=== PATIENT | female | born 1995 | race Caucasian/White ===

== ENCOUNTER 2020-02-15 13:13 | Emergency (ER) | payer OTHER, SELFPAY ==
[2020-02-15 13:29] VITALS: BP 132/85; PULSE 72; RESP 16; TEMP 37.3; O2SAT 100
--- NOTE | 2020-02-15 14:01 | ED.EAR ---
HPI - Ear Problem General Chief complaint: Ear Stated complaint: ear infection?? Time Seen by Provider: 02/15/20 13:16 Source: patient Mode of arrival: ambulatory Limitations: no limitations History of Present Illness HPI Narrative: Patient is a 24-year-old female who presents with several days duration of right ear pain with congestion rhinorrhea nonproductive cough. Patient also notes her daughter has a cold. Patient denies fever vomiting diarrhea. Patient denies chest pain or dyspnea. Patient on arrival resting comfortably in the room in no distress. Related Data Allergies Allergy/AdvReac Type Severity Reaction Status Date / Time No Known Allergies Allergy Verified 02/15/20 13:32 Review of Systems Review of Systems: All systems reviewed & are unremarkable except as noted in HPI and below PMFSH Social History Social History (Updated 02/15/20 @ 14:02 by Avni Knight PA-C) Smoking status: Current every day smoker Gender identity (if verbalized by the patient): Female Exam Narrative: Exam Narrative: GENERAL: Well-appearing, well-nourished, and in no acute distress. HEAD: Normocephalic, atraumatic. EYES: PERRLA and EOMI. ENT: Nares clear, no rhinorrhea or epistaxis. Mucous membranes moist. Oropharynx without tonsillar hypertrophy exudate or other lesions. Bilateral TMs slightly erythematous with fluid levels NECK: Supple. No adenopathy or masses. CHEST: Clear to auscultation. No respiratory distress. No wheezes rales or rhonchi HEART: Regular rate and rhythm. No murmur heard. EXTREMITIES: Normal range of motion. No edema. SKIN: Warm, dry, no rash. NEURO: No focal deficits. Alert and oriented x3. PSYCH: Normal mood and affect. Course Course Emergency Course: Patient in the room aware of case findings treatment plan and diagnosis agreeing to follow-up as directed with primary care nontoxic-appearing no distress felt appropriate for outpatient reevaluation Vital Signs Vital signs: Vital Signs Temperature 99.1 F 02/15/20 13:29 Pulse Rate 72 02/15/20 13:29 Respiratory Rate 16 02/15/20 13:29 Blood Pressure 132/85 02/15/20 13:29 Pulse Oximetry 100 02/15/20 13:29 Temperature 99.1 F 02/15/20 13:29 Pulse Rate 72 02/15/20 13:29 Respiratory Rate 16 02/15/20 13:29 Blood Pressure 132/85 02/15/20 13:29 Pulse Oximetry 100 02/15/20 13:29 Medical Decision Making MDM Narrative Medical decision making narrative: Patient with upper respiratory infection afebrile nontoxic-appearing no distress felt appropriate for outpatient reevaluation. Patient agreeing to follow-up as directed and will return if symptoms worsen Vital Signs Vital Signs: Vital Signs Temperature 99.1 F 02/15/20 13:29 Pulse Rate 72 02/15/20 13:29 Respiratory Rate 16 02/15/20 13:29 Blood Pressure 132/85 02/15/20 13:29 Pulse Oximetry 100 02/15/20 13:29 Temperature 99.1 F 02/15/20 13:29 Pulse Rate 72 02/15/20 13:29 Respiratory Rate 16 02/15/20 13:29 Blood Pressure 132/85 02/15/20 13:29 Pulse Oximetry 100 02/15/20 13:29 Discharge Plan Discharge Clinical Impression: Acute upper respiratory infection Patient Disposition: Home, Self-Care Condition: Stable Instructions: Antibiotic Form, Upper Respiratory Infection (DC) Additional Instructions: Follow up with your primary care provider within 1-2 days to set up for reevaluation. Go to ER for shortness of breath, difficulty breathing, chest pain, fever/chills, weakness, nauseau/vomitting, etc. or any other concerns. Stay well-hydrated Take any prescribed medications as directed. Follow patient education sheets If you do not have a drug allergy to tylenol or motrin and can tolerate it then take tylenol or motrin as needed for discomfort/pain. Prescriptions: New amoxicillin 500 mg tablet 500 mg PO Q12H 10 Days Qty: 20 RF: 0 loratadine [Claritin] 10 mg tablet 10 mg PO DAILY PRN (Reason: allergy
== END 2020-02-15 14:30 | disposition home or self-care (01) ==
LOC: ANHED 14:58
PROVIDERS: Emergency Provider Emergency Medicine
DX: J06.9 Acute upper respiratory infection, unspecified (principal); F17.200 Nicotine dependence, unspecified, uncomplicated
CPT/HCPCS: 99283

== ENCOUNTER 2020-06-12 14:32 | Emergency (ER) | payer OTHER, SELFPAY ==
[2020-06-12 15:11] VITALS: BP 135/71; PULSE 82; RESP 16; TEMP 36.7; O2SAT 99
[2020-06-12 15:37] LABS: Add Urine Microscopic? YES; Amorphous Sediment Urine Few; Appearance Urine Clear (Clear); Bilirubin Urine Negative (Negative); Blood Urine Negative (Negative); Color Urine Yellow (Yellow); Glucose Urine UA Negative (Negative); Ketones Urine Negative (Negative); Leukocyte Esterase Ur Negative LEU/UL (Negative); Mucus Urine Moderate /lpf; Nitrate Urine Negative (Negative); Protein Urine 1+ mg/dL (Negative); RBC Urine 0-2 /hpf (0-2); Squamous Epithelial Cell Urine Many /hpf (Few); Urobilinogen Urine Negative mg/dL (<2.0)
[2020-06-12 15:38] LABS: Specific Grav Ur 1.032 (1.001-1.035)
--- NOTE | 2020-06-12 15:48 | ED.FEMALEGU ---
HPI - Female Genitourinary General Chief complaint: Urogenital-Female Stated complaint: I have an STD or a UTI Time Seen by Provider: 06/12/20 15:19 Source: patient Mode of arrival: ambulatory Limitations: no limitations History of Present Illness HPI Narrative: This is a 24 year old female that presents to the ER for dysuria x 2 days. Reports unprotected sex one week ago. Reports she has had dysuria and frequency. Was concerned about a possible STD. Denies fever, vomiting, flank pain, or hematuria. Related Data Home Medications Medication Instructions Recorded Confirmed No Home Medications 06/12/20 06/12/20 Allergies Allergy/AdvReac Type Severity Reaction Status Date / Time No Known Allergies Allergy Verified 06/12/20 15:15 Review of Systems Review of Systems: Narrative: CONSTITUTIONAL: Denies fever GASTROINTESTINAL: Denies abdominal pain, nausea, vomiting GENITOURINARY: Reports dysuria. Denies hematuria. All systems reviewed & are unremarkable except as noted in HPI and below [facility] Social History Social History (Updated 06/12/20 @ 15:51 by Amalia Cartwright PA-C) Smoking status: Former smoker Substance use: current Substance use type: marijuana Gender identity (if verbalized by the patient): Female Exam Narrative: Exam Narrative: GENERAL: Well-appearing, obese, and in no acute distress. HEAD: Normocephalic, atraumatic. EYES: EOMI. CHEST: Clear to auscultation. No respiratory distress. No wheezes rales or rhonchi HEART: Regular rate and rhythm. No murmur heard. Normal peripheral pulses. ABDOMEN: Soft, nontender, nondistended, normal active bowel sounds. No CVA tenderness EXTREMITIES: Normal range of motion. No edema. SKIN: Warm, dry, no rash. NEURO: No focal deficits. Alert and oriented x3. PSYCH: Normal mood and affect Course Vital Signs Vital signs: Vital Signs Temperature 98.1 F 06/12/20 15:11 Pulse Rate 82 06/12/20 15:11 Respiratory Rate 16 06/12/20 15:11 Blood Pressure 135/71 06/12/20 15:11 Pulse Oximetry 99 06/12/20 15:11 Temperature 98.1 F 06/12/20 15:11 Pulse Rate 82 06/12/20 15:11 Respiratory Rate 16 06/12/20 15:11 Blood Pressure 135/71 06/12/20 15:11 Pulse Oximetry 99 06/12/20 15:11 MDM - Female Genitourinary MDM Narrative Medical decision making narrative: Patient presents emergency department for possible STD. She is afebrile and nontoxic-appearing. UA with 4-6 white blood cells, but also many squamous epithelial cells. This will be sent for a culture. Bedside test is negative. Trichomonas was negative. Chlamydia and gonorrhea are pending. After evaluation patient eloped prior to receiving any further treatment Lab Data Attestation: I reviewed the patient's lab results. Labs: Lab Results 06/12/20 06/12/20 06/12/20 Range/Units 15:24 15:46 15:46 Urine Color Yellow (Yellow) Urine Appearance Clear (Clear) Urine pH 6.0 (5.0-9.0) Ur Specific [place] 1.032 (1.001-1.035) Urine Protein 1+ H (Negative) mg/dL Urine Glucose (UA) Negative (Negative) mg/dL Urine Ketones Negative (Negative) mg/dL Ur Blood (Man) Negative (Negative) Urine Nitrate Negative (Negative) Urine Bilirubin Negative (Negative) Urine Urobilinogen Negative (<2.0) mg/dL Leukocyte Esterase Rfl Negative (Negative) ARIS/UL Urine RBC 0-2 (0-2) /hpf Urine WBC 4-6 H /hpf Ur Squamous Epith Cells Many H (Few) /hpf Amorphous Sediment Few H (None) Hyaline Casts 1-2 (None) /lpf Urine Mucus Moderate H /lpf C.trachomatis RNA (TMA) Pending N.gonorrhoeae RNA (TMA) Pending Trichomonas Direct ID Negative (Negative) UCG Bedside Result Negative Reference Range: Negative Critical Care Time Critical Care Time Critical Care Time: No Discharge Plan Discharge Clinical Impression: Julisa
--- NOTE | 2020-06-12 16:23 | PC.NURSE ---
PT IN THE WATERS STATING I HAVE TO LEAVE RIGHT NOW FOR A FAMILY EMERGENCY. PT NOTIFIED OF RISKS OF LEAVING. VERBALIZES UNDERSTANDING. PT AMBULATED TO EXIT WITH STEADY GAIT. PA NOTIFIED.
== END 2020-06-12 16:26 | disposition left against medical advice (07) ==
PROVIDERS: Physician Assistant; Emergency Provider Emergency Medicine
DX: R30.0 Dysuria (principal); Z87.891 Personal history of nicotine dependence
CPT/HCPCS: 81001; 81025; 87070; 87086; 87491; 87591; 87808; 99284

== ENCOUNTER 2020-07-28 12:17 | Emergency (ER) | payer OTHER, SELFPAY ==
--- NOTE | ~2020-07-28 | XR_ITS ---
EXAMINATION: XR ankle LT min 3V DATE: 07/28/2020 12:34 INDICATION: Left ankle injury and pain. TECHNIQUE: 4 views of left ankle were obtained. COMPARISON: None. FINDINGS: Bone alignment is normal. No fracture. There is mild osteoarthritis of talonavicular joint. There is ankle soft tissue swelling. IMPRESSION: 1. No fracture. Reviewed, dictated and finalized at location A. [facility] IMPRESSION: 1. No fracture.
--- NOTE | 2020-07-28 12:32 | ED.GENADULT ---
HPI - General Adult General Chief complaint: Extremity Injury, Lower Stated complaint: left ankle pain Time Seen by Provider: 07/28/20 12:32 Source: patient Mode of arrival: ambulatory Limitations: no limitations History of Present Illness HPI narrative: 24-year-old female patient presents to the [facility] with complaints of left ankle pain. Patient states that last night she went to go and stepped off her porch and hit some uneven concrete and rolled her ankle. Patient states she is 23 ligaments of the left ankle before in the past but denies ever having surgery for it. Patient states she was put in a boot for about 12 weeks. Patient states she has been taking Tylenol for the pain. Patient states she is starting to have some numbness and tingling to the toes. Related Data Home Medications Medication Instructions Recorded Confirmed No Home Medications 06/12/20 06/12/20 Allergies Allergy/AdvReac Type Severity Reaction Status Date / Time No Known Allergies Allergy Verified 06/12/20 15:15 Review of Systems Review of Systems: Narrative: CONSTITUTIONAL: Denies fever, chills, or sweats. EYES: Denies visual changes, redness, or discharge. ENT: Denies rhinorrhea, congestion, sore throat, or otalgia. CARDIOVASCULAR: Denies chest pain, palpitations, or edema. RESPIRATORY: Denies cough or dyspnea. GASTROINTESTINAL: Denies abdominal pain, nausea, vomiting, or diarrhea. GENITOURINARY: Denies dysuria or hematuria. SKIN: Denies rash or itching. MUSCULOSKELETAL: Denies back pain, joint pain, or myalgia. Positive left ankle pain NEUROLOGIC: Denies headache, numbness, or weakness. PSYCHIATRIC: Denies anxiety or depression. PMFSH Social History Social History Smoking status: Former smoker Substance use: current Substance use type: marijuana Gender identity (if verbalized by the patient): Female Comments At the time of my signature I agree with nursing past medical history, surgical, social, and family history. There is no relevant family history pertinent to the presenting complaint. Exam Narrative: Exam Narrative: GENERAL: Well-appearing, well-nourished, and in no acute distress. HEAD: Normocephalic, atraumatic. EYES: PERRLA and EOMI. ENT: Nares clear, no rhinorrhea or epistaxis. Mucous membranes moist. NECK: Supple. No lymphadenopathy CHEST: Clear to auscultation. No respiratory distress. HEART: Regular rate and rhythm. No murmur heard. Normal peripheral pulses. ABDOMEN: Soft, nontender, nondistended, normal active bowel sounds. EXTREMITIES: Patient is able to bear weight and ambulate but has increasing pain with walking to left ankle. The L ankle is without obvious asymmetry or deformity when compared to the R ankle. Patient can flex/extend, invert/reagan. No obvious surface trauma, ecchymosis, or soft tissue swelling. No body tenderness to palpation over the medial malleolus, but does have a little bit of tenderness over the lateral malleolus with swelling present.. Pain over the anterior talofibular ligament, no pain to the posterior talofibular ligament, calcaneofibular ligament nontender and without swelling. No tenderness or deformity of the midfootor over the proximal fifth metatarsal. Good DP and posterior tibial pulses and sensation to light touch normal. Talar tilt test is negative for ligament laxity to valgus or vargus stress. Negative anterior draw. Peroneal nerve is intact with strong eversion and plantar flexion. SKIN: Warm, dry, no rash. NEURO: No focal deficits. Alert and oriented x3. Course Reevaluation(s) Reevaluation #1: Reevaluated patient after her x-ray had resulted. Notified her that the x-ray does not show any acute fractures. Discussed with her that this does not necessarily rule out any leg pain or tendon injury. Discussed with her that where she is describing the pain kind of over the anterior middle of the ankle there is ligament and tendon
[2020-07-28 12:35] VITALS: BP 121/75; PULSE 73; RESP 20; TEMP 36.6; O2SAT 100
== END 2020-07-28 12:51 | disposition home or self-care (01) ==
PROVIDERS: Emergency Provider Nurse Practitioner Family
DX: S93.402A Sprain of unspecified ligament of left ankle, initial encounter (principal); Z87.891 Personal history of nicotine dependence; X50.9XXA Other and unspecified overexertion or strenuous movements or postures, initial encounter
CPT/HCPCS: 73610; 99213; G0463